=== PATIENT | male | born 1995 | race Caucasian/White ===

== ENCOUNTER 2022-08-24 13:39 | Emergency (ER) | payer SELFPAY ==
[2022-08-24 13:45] VITALS: BP 142/86; PULSE 98; RESP 16; TEMP 37.1; O2SAT 97; BMI 37.3
[2022-08-24 14:18] LABS: COVID19 -Nasal RAPID Negative (Negative)
--- NOTE | 2022-08-24 15:14 | DI.RAD.S_ITS ---
PROCEDURE: XR CHEST 2V INDICATIONS: wheezing TECHNIQUE: 2 views of the chest were acquired. COMPARISON: None. FINDINGS: Surgical changes and devices: None. Lungs and pleura: Lungs are clear. No pleural effusions or pneumothorax. Mediastinum: Mediastinal contours are normal. Heart size is normal. Bones and chest wall: No suspicious bony abnormalities. Soft tissues appear unremarkable. IMPRESSION: Normal for age, source of current wheezing symptoms is not seen. Dictated by: Malachi Wilkes M.D. on 08/24/2022 at 15:36 Approved by: Malachi Wilkes M.D. on 08/24/2022 at 15:40
--- NOTE | 2022-08-24 15:17 | ED_ITS ---
HPI - URI/Sore Throat <NICK Sosa - Last Filed: 08/24/22 18:28> General Chief Complaint: Upper Respiratory Symptoms Stated Complaint: SOB,fever Time Seen by Provider: 08/24/22 15:10 Source: patient Mode of arrival: Ambulatory History of Present Illness HPI Narrative: This is a 27-year-old male without significant medical history who presents to the emergency department complaining of difficulty breathing, congestion, shortness of breath, fever and symptoms which started last night. Patient denies history of asthma or wheezing in the past. States that his girlfriend was ill with an upper respiratory cold 1 week ago, she states that she had influenza 2 weeks before that but was not tested. Patient reports having fever of 101 last night, chills overnight, did not take medicine prior to arrival today, came in for eval you radiation of his shortness of breath. He endorses having a runny nose, sore throat, nasal congestion, denies any chest pain or palpitations. Denies any nausea or vomiting. Denies any other known sick contacts. Related Data Previous Rx's Medication Instructions Recorded albuterol sulfate 90 mcg/actuation 1 inh inhalation Q4H PRN shortness 08/24/22 breath activated powder of breath #1 ea inhaler,sensor cetirizine 10 mg tablet 20 mg PO BEDTIME #30 tabs 08/24/22 fluticasone propionate 50 1 spray intranasal BID congestion 08/24/22 mcg/actuation nasal #16 grams spray,suspension (Allergy Relief (fluticasone)) inhalational spacing device (Uriel #1 ea 08/24/22 Aerosol Schuyler Enhancer spacer) Allergies Allergy/AdvReac Type Severity Reaction Status Date / Time No Known Drug Allergies Allergy Verified 08/24/22 13:47 Review of Systems <NICK Sosa - Last Filed: 08/24/22 18:28> Review of Systems Narrative: Review of systems is negative for acute abnormalities unless otherwise noted in HPI Patient History <NICK Sosa - Last Filed: 08/24/22 18:28> Social History Smoking Status: Current every day smoker Smoking Status: Current every day smoker alcohol intake frequency: a few times a week Substance Use Type: marijuana Exam <NICK Sosa - Last Filed: 08/24/22 18:28> Narrative Exam Narrative: Reviewed vitals signs and nursing notes. General: cooperative, appears uncomfortable, congested, cough, tachypneic, well groomed HEENT: symmetrical facial expressions, moist mucous membranes, congested nose without sinus tenderness, flushed face Cardiovascular: regular rate and rhythm, no peripheral edema, warm extremities Respiratory: normal effort, tachypnea, inspiratory and expiratory wheezes throughout all murguia, patient denies history of wheezing in the past, denies ever using albuterol. Able to speak in short sentences, without, stridor. Patient endorses productive cough since last night. Skin: brisk capillary refill, without pallor or erythema, normal skin tone for ethnicity Neuro: normal speech and cognition, A&O x3, ambulatory, clear speech Psych: mental status is grossly normal, congruent mood, normal affect, pleasant and cooperative Initial Vital Signs Initial Vital Signs: Vital Signs Temperature 98.7 F 08/24/22 13:45 Pulse Rate 98 H 08/24/22 13:45 Respiratory Rate 16 08/24/22 13:45 Blood Pressure 142/86 H 08/24/22 13:45 Pulse Oximetry 97 08/24/22 13:45 Oxygen Delivery Method 08/24/22 13:45 <Niesha Bryson DO - Last Filed: 08/28/22 02:52> Initial Vital Signs Initial Vital Signs: Vital Signs Temperature 98.7 F 08/24/22 13:45 Pulse Rate 98 H 08/24/22 13:45 Respiratory Rate 16 08/24/22 13:45 Blood Pressure 142/86 H 08/24/22 13:45 Pulse Oximetry 97 08/24/22 13:45 Oxygen Delivery Method 08/24/22 13:45 Course <NICK Sosa - Last Filed: 08/24/22 18:28> Orders Ordered: Discontinued Medications Acetaminophen (Acetaminophen 325 Mg Tablet) 975 mg PO NOW ONE Stop: 08/24/22 15:15 Last Admin: 08/24/22 16:02 Dose: 975 mg Documented By: EDIE Albuterol (Albuterol 2.5 Mg/3 Ml Neb (Adult)) 2.5 mg INH NOW ONE Stop: 08/24/22 15:15 Last Admin: 08/24/22 15:36 Dose: 2.5 mg Documented By: MATTEO Albuterol (Albuterol Hfa Prepack) 1 box [facility] ONE Stop: 08/24/22 17:26 Last Admin: 08/24/22 17:35 Dose: Not Given Documented By: YISEL Ketorolac Tromethamine (Ketorolac 10 Mg Tablet) 10 mg PO NOW ONE Stop: 08/24/22 15:15 Last Admin: 08/24/22 16:02 Dose: 10 mg Documented By: EDIE Loratadine (Loratadine 10 Mg Tablet) 10 mg PO NOW ONE Stop: 08/24/22 15:15 Last Admin: 08/24/22 16:14 Dose: 10 mg Documented By: EDIE Vital Signs Vital signs: Vital Signs - 8 hr 08/24/22 13:45 08/24/22 15:36 08/24/22 17:35 Temperature 98.7 F Pulse Rate 98 H 110 H 98 H Respiratory Rate 16 24 17 Blood Pressure 142/86 H 114/66 Pulse Oximetry 97 93 95 Oxygen Delivery Method Room Air Room Air Room Air <Niesah Bryson DO - Last Filed: 08/28/22 02:52> Orders Ordered: Discontinued Medications Acetaminophen (Acetaminophen 325 Mg Tablet) 975 mg PO NOW ONE Stop: 08/24/22 15:15 Last Admin: 08/24/22 16:02 Dose: 975 mg Documented By: EDIE Albuterol (Albuterol 2.5 Mg/3 Ml Neb (Adult)) 2.5 mg INH NOW ONE Stop: 08/24/22 15:15 Last Admin: 08/24/22 15:36 Dose: 2.5 mg Documented By: MATTEO Albuterol (Albuterol Hfa Prepack) 1 box [facility] ONE Stop: 08/24/22 17:26 Last Admin: 08/24/22 17:35 Dose: Not Given Documented By: YISEL Ketorolac Tromethamine (Ketorolac 10 Mg Tablet) 10 mg PO NOW ONE Stop: 08/24/22 15:15 Last Admin: 08/24/22 16:02 Dose: 10 mg Documented By: EDIE Loratadine (Loratadine 10 Mg Tablet) 10 mg PO NOW ONE Stop: 08/24/22 15:15 Last Admin: 08/24/22 16:14 Dose: 10 mg Documented By: EDIE Vital Signs Vital signs: Vital Signs - 8 hr 08/24/22 13:45 08/24/22 15:36 08/24/22 17:35 Temperature 98.7 F Pulse Rate 98 H 110 H 98 H Respiratory Rate 16 24 17 Blood Pressure 142/86 H 114/66 Pulse Oximetry 97 93 95 Oxygen Delivery Method Room Air Room Air Room Air MDM - URI/Sore Throat <Lina Schuster, [facility] - Last Filed: 08/24/22 18:28> Lab Data Labs: Lab Results 08/24/22 08/24/22 Range/Units 13:50 16:05 Chlamy pneumoniae PCR Not detected (Not Detect) Adenovirus (PCR) Not detected (Not Detect) B. pertussis DNA (PCR) Not detected (Not Detecte) B.parapertussis DNA PCR Not detected (Not Detecte) Coronavirus OC43 (PCR) Not detected (Not Detect) Coronavirus HKU1 (PCR) Not detected (Not Detect) Coronavirus 229E (PCR) Not detected (Not Detect) SARS-CoV-2 (PCR) Negative Not detected (Negative) Coronavirus NL63 (PCR) Not detected (Not Detect) Human Metapneumovir PCR Not detected (Not Detect) Influenza Type A (PCR) Not detected (Not Detect) Influenza Type B (PCR) Not detected (Not Detect) M. pneumoniae (PCR) Not detected (Not Detect) Parainfluenza 1 (PCR) Not detected (Not Detect) Parainfluenza 2 (PCR) Not detected (Not Detect) Parainfluenza 3 (PCR) Not detected (Not Detect) Parainfluenza 4 (PCR) Not detected (Not Detect) RSV (PCR) Not detected (Not Detect) Entero/Rhino (PCR) Detected H (Not Detect) Imaging Data Chest x-ray: Radiologist's Impression: PROCEDURE:? XR CHEST 2V ? INDICATIONS:? wheezing ? TECHNIQUE:? 2 views of the chest were acquired.? ? COMPARISON:? None. ? FINDINGS:? ? Surgical changes and devices:? None.? ? Lungs and pleura:? Lungs are clear.? No pleural effusions or pneumothorax.? ? Mediastinum:? Mediastinal contours are normal.? Heart size is normal.? ? Bones and chest wall:? No suspicious bony abnormalities.? Soft tissues appear unremarkable.? ? IMPRESSION:? Normal for age, source of current wheezing symptoms is not seen. ? ? Dictated by: Malachi Wilkes M.D. on 08/24/2022 at 15:36 ? ? Approved by: Malachi Wilkes M.D. on 08/24/2022 at 15:40 ? MDM Narrative Medical decision making narrative: This is a 27-year-old male who presents to the emergency department for upper respiratory illness symptoms which started last night with a sore throat, he developed a fever, states that his symptoms came on quickly, today he presented to the emergency department with inspiratory and expiratory wheezing, states that he felt short of breath, sore throat and nasal congestion. He was given an albuterol nebulizer which cleared up his wheezing, he was breathing without tachypnea, hypoxia, or additional wheezing afterwards. Respiratory panel via PCR came back positive for rhino virus. This is most likely what has triggered his reactive airway symptoms. He was given an albuterol inhaler, cetirizine 20 mg p.o. q.h.s., encouraged to use Flonase b.i.d., albuterol as needed shortness of breath. If he has ongoing fever and chills, difficulty breathing and productive cough, I encouraged him to return to the emergency department in case this is turn into a bacterial illness. Patient is without retractions, is nontoxic appearing, was given Tylenol and ibuprofen with Claritin in the emergency department, his symptoms improved while he was waiting for his respiratory panel. Patient is appropriate and amenable to discharge home. Vital signs are stable on repeat examination is unremarkable. Patient has been informed of results. Patient has been given strict return to ER precautions for any new or worsening symptoms. Patient understands to follow up closely with outpatient providers as instructed. Patient understands plan and agrees to discharge home. All questions and concerns answered at this time. <Niesha Bryson, DO - Last Filed: 08/28/22 02:52> Lab Data Labs: Lab Results 08/24/22 08/24/22 Range/Units 13:50 16:05 Chlamy pneumoniae PCR Not detected (Not Detect) Adenovirus (PCR) Not detected (Not Detect) B. pertussis DNA (PCR) Not detected (Not Detecte) B.parapertussis DNA PCR Not detected (Not Detecte) Coronavirus OC43 (PCR) Not detected (Not Detect) Coronavirus HKU1 (PCR) Not detected (Not Detect) Coronavirus 229E (PCR) Not detected (Not Detect) SARS-CoV-2 (PCR) Negative Not detected (Negative) Coronavirus NL63 (PCR) Not detected (Not Detect) Human Metapneumovir PCR Not detected (Not Detect) Influenza Type A (PCR) Not detected (Not Detect) Influenza Type B (PCR) Not detected (Not Detect) M. pneumoniae (PCR) Not detected (Not Detect) Parainfluenza 1 (PCR) Not detected (Not Detect) Parainfluenza 2 (PCR) Not detected (Not Detect) Parainfluenza 3 (PCR) Not detected (Not Detect) Parainfluenza 4 (PCR) Not detected (Not Detect) RSV (PCR) Not detected (Not Detect) Entero/Rhino (PCR) Detected H (Not Detect) Discharge Plan Departure Patient Disposition: Home Clinical Impression: Rhinovirus infection Upper respiratory infection Qualifiers: URI type: unspecified viral URI Qualified Code(s): J06.9 - Acute upper respiratory infection, unspecified Instructions: Common Cold, DI for Viral Upper Respiratory Infection -- Adult Activity Restrictions/Additional Instructions: *You have been diagnosed with rhino virus, this is a common cold virus, it does cause runny nose, fever and congestion. This can be a trigger for reactive airway disease, today you were wheezing, it was much better after your nebulizer. Please use albuterol as needed with a spacer for shortness of breath. Please return for any worsening of her symptoms, take ibuprofen 800 mg every 8 hours as needed for pain and fever, 975 mg of Tylenol every 6-8 hours as needed for pain or fever in addition to that, Flonase morning and night, cetirizine 20 mg at nighttime. These things will help you with your symptoms, remember to stay hydrated, I hope you feel better soon. *What to do: *Please continue to take your regular medications as directed. [x ] New medication prescriptions sent to your pharmacy: [[facility] ] [ ] New medication written as a paper prescription [ ] No new medications given *Please follow up with your primary care provider in 2-3 days, call for an appointment. Let them know you were seen in the Emergency Department and that we asked that you be seen for follow-up. We will electronically transmit a record of today's note if your PCP is in our system *If you do not have a primary care provider please contact [phone] to establish care with one of the [facility] primary care providers. *Return to Emergency Department if you should have any new, worsening, or concerning symptoms, such as [fever greater than 101F, chills, worsening pain, persistent vomiting or other bothersome symptoms]. Prescriptions: New cetirizine 10 mg tablet 20 mg PO BEDTIME Qty: 30 0RF fluticasone propionate [Allergy Relief (fluticasone)] 50 mcg/actuation spray,suspension 1 spray intranasal BID Qty: 16 0RF Rx Instructions: administer into each nostril albuterol sulfate 90 mcg/actuation aero powdr breath act w/sensor 1 inh inhalation Q4H PRN (Reason: shortness of breath) Qty: 1 0RF (DME) Uriel Aerosol Schuyler Enhancer Spacer See Rx Instructions .Route Qty: 1 0RF Rx Instructions: As directed Visit Report Forms: Patient Portal/API <Niesha Bryson, - Last Filed: 08/28/22 02:52> Cosign ED Attending Cosignature Attestation: I was immediately available in the department for consultation. Documentation has been reviewed. I agree with assessment and plan.
[2022-08-24 15:36] VITALS: PULSE 110; RESP 24; O2SAT 93
[2022-08-24] MEDS: ALBUTEROL 2.5 MG/3 ML NEB (ADULT) INH (15:36)
--- NOTE | 2022-08-24 15:40 | RT ---
Pt yi; neb tx well, no distress noted and on room air.
[2022-08-24] MEDS: ACETAMINOPHEN 325 MG TABLET 975 MG PO (16:02)
[2022-08-24] MEDS: KETOROLAC 10 MG TABLET PO (16:02)
[2022-08-24] MEDS: LORATADINE 10 MG TABLET PO (16:14)
[2022-08-24 17:20] LABS: Adenovirus Not Detected (Not Detect); B. parapertussis Not Detected (Not Detecte); Bordetella pertussis Not Detected (Not Detecte); Chlamydophila pneumoniae Not Detected (Not Detect); Coronavirus 229E Not Detected (Not Detect); Coronavirus HKU1 Not Detected (Not Detect); Coronavirus NL 63 Not Detected (Not Detect); Coronavirus OC43 Not Detected (Not Detect); Human Metapneumovirus Not Detected (Not Detect); Human Rhinovirus/Enterovirus Detected (Not Detect); Influenza A Not Detected (Not Detect); Influenza B Not Detected (Not Detect); Mycoplasma pneumoniae Not Detected (Not Detect); Parainfluenza Virus 1 Not Detected (Not Detect); Parainfluenza Virus 2 Not Detected (Not Detect); Parainfluenza Virus 3 Not Detected (Not Detect); Parainfluenza Virus 4 Not Detected (Not Detect); Respiratory Syncytial Virus Not Detected (Not Detect); SARS- CoV-2 Not Detected (Not Detecte)
[2022-08-24 17:35] VITALS: BP 114/66; PULSE 98; RESP 17; O2SAT 95
== END 2022-08-24 17:37 | disposition home or self-care (01) ==
PROVIDERS: Emergency Medicine; Emergency Provider Nurse Practitioner Critical Care Medicine
DX: J06.9 Acute upper respiratory infection, unspecified (principal); B34.8 Other viral infections of unspecified site; Z20.822 Contact with and (suspected) exposure to COVID-19
CPT/HCPCS: 71046; 87633; 87635; 94640; 99283; C9803; J7613